=== PATIENT | female | born 1935 | race Caucasian/White ===

== ENCOUNTER → 2017-01-30 | Outpatient (CLI) | payer MEDICARE ==
--- NOTE | 2017-02-02 11:20 | DEXA ---
AP SPINE L1 - L4 0.908 -2.3 -1.0 LT FEMUR TOTAL 0.983 -0.2 1.5 RT FEMUR TOTAL 0.999 -0.1 1.6 TOTAL BODY TOTAL OTHER DUAL FEMUR FRAX* ASSESSMENT Risk factors: None. 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 The increased density of the spine does represent a significant change. The increased density of the left hip does not represent a significant change. The decreased density of the right hip does represent a significant change. The density of the spine has increased 7.2% since the initial exam on 2005. The spine density has increased 3.5% since the most recent exam on 08/13/2014. The density of the left hip has increased 4.4% since the initial exam on 2005. The density of the left hip has increased 0.6% since the most recent exam on 03/2014. The density of the right hip has increased 0.3% since the initial exam on 2005. The density of the right hip has decreased 2.3% since the most recent exam on . FOLLOW-UP: Recommendation for the next bone density exam: 2 years. ANABELLA
== END ==
LOC: M WHC 12:40
PROVIDERS: ATTEND Internal Medicine
DX: M85.80 Other specified disorders of bone density and structure, unspecified site (principal); M89.9 Disorder of bone, unspecified